=== PATIENT | male | born 1965 | race Caucasian/White ===

== ENCOUNTER 2017-11-09 21:03 | Emergency (ER) | payer MEDICAID, SELFPAY ==
[~2017-11-09] VITALS: Ht 190.5 cm; Wt 100.0 kg
[2017-11-10 00:11] VITALS: BP 118/62
== END 2017-11-10 01:33 | disposition home or self-care (01) ==
LOC: ED 23:59
DX: F10.120 Alcohol abuse with intoxication, uncomplicated (principal)
CPT/HCPCS: 99283

== ENCOUNTER 2018-01-27 17:32 | Emergency (ER) | payer MEDICAID ==
[2018-01-27 17:37] VITALS: BP 111/67
== END 2018-01-27 18:33 | disposition left against medical advice (07) ==
LOC: ED 18:27
DX: R41.82 Altered mental status, unspecified (principal); R45.1 Restlessness and agitation; R07.9 Chest pain, unspecified; M79.602 Pain in left arm
CPT/HCPCS: 93005; 99283